=== PATIENT | female | born 1975 | race Caucasian/White ===

== ENCOUNTER 2019-08-15 14:42 | Emergency (ER) | payer MEDICAID ==
[2019-08-15] MEDS ORDERED: Ondansetron 4 MG/2 ML SDV IVPUSH ONE (15:21)
[2019-08-15] MEDS ORDERED: Sodium Chloride 0.9% 1,000 ML IV STA (15:21)
[2019-08-15] MEDS ORDERED: Sodium Chloride 0.9% 10 ML Syringe FLUSH PRN ×2 (15:21→15:47)
[2019-08-15] MEDS ORDERED: HYDROmorphone 1 MG/ML Syringe IVPUSH ONE (15:23)
[2019-08-15] MEDS ORDERED: Iopamidol 755 Mg/ML 100 ML Bottle IVPUSH ONE (15:47)
[2019-08-15] MEDS ORDERED: Diatrizoate Meglumine/Diatrizoate Sodium 37% 120 ML Bottle PO ONE (15:47)
[2019-08-15] MEDS ORDERED: Sodium Chloride 0.9% 100 ML IV SCH (16:00)
[2019-08-15] MEDS ORDERED: HYDROmorphone 0.5 MG/0.5 ML Syringe IVPUSH ONE (16:29)
--- NOTE | 2019-08-15 16:34 | CT ---
CT abdomen and pelvis Technique: Multiple axial sections were obtained from above the dome of the diaphragm inferiorly through the pubic symphysis. Intravenous and oral contrast was utilized. Delayed images were also obtained through the bladder. Comparison: Visualized lung bases show nothing acute. Findings: Liver shows minimal intrahepatic biliary duct dilatation. This is most likely residual from prior cholecystectomy. No additional abnormality is seen within the liver. Spleen shows no focal parenchymal abnormality. Previous stomach surgery is noted. Adrenal glands show no nodule. Kidneys show symmetric contrast enhancement. Several small low-density lesions are noted within the right kidney which are most likely due to cysts measuring approximately 1 cm or less in size. Pancreas appears within normal limits. Aorta shows no aneurysm. No retroperitoneal adenopathy or mesenteric abnormalities are seen. No pelvic mass or adenopathy is identified. Small amount of free fluid is seen within the cul-de-sac which is believed to be physiologic. Surgical material is seen off the tip of the cecum. Appendix is not visualized. Delayed images shows contrast within the distal ureters and bladder. Bone window settings were reviewed which appear within normal limits for the patient's age. No acute osseous finding is appreciated. Impression: 1. Findings believed to be incidental as noted above. 2. No acute abnormality is appreciated. Diagnostic code #2 Study was dictated in [place] Standard Time
--- NOTE | 2019-08-15 16:38 | EDM.PDOC ---
ED HPI GENERAL MEDICAL PROBLEM - General Chief Complaint: Abdominal Pain Stated Complaint: POSS INFECTION POST SURGERY Time Seen by Provider: 08/15/19 15:00 Source of Information: Reports: Patient History Limitations: Reports: No Limitations - History of Present Illness INITIAL COMMENTS - FREE TEXT/NARRATIVE: The patient presents with left upper abdominal pain. She had a hiatal hernia repair in [place] on the . She stayed there a few days and then came home. She did not tolerate her pain meds. She was seen here a few days ago. She had x-rays and labs done and that all looked good. The pain has been been getting better. She also has swelling in her legs and left shoulder and chest pain. She has one incision that is draining some yellow/green fluid. She has no fever but she has chills. She has no cough but she is short of breath at times. She has no history of DVT or PE. Onset: Gradual Duration: Week(s): Location: Reports: Abdomen Quality: Reports: Burning, Sharp Severity: Moderate Improves with: Reports: None Worsens with: Reports: None Associated Symptoms: Reports: Chest Pain, Shortness of Breath. Denies: Cough, Fever/Chills, Headaches, Nausea/Vomiting Abdomen Pain Score (Numeric/FACES): 8 - Related Data Allergies Allergy/AdvReac Type Severity Reaction Status Date / Time codeine Allergy Chest Pain Verified 08/15/19 14:58 oxycodone Allergy Chest Pain Verified 08/15/19 14:58 Home Meds: Home Meds Ondansetron [Zofran] 4 mg BUCCAL Q6H PRN #8 tab 08/07/19 [Rx] Apixaban [Eliquis] 10 mg PO BID #60 tablet 08/15/19 [Rx] Celecoxib [CeleBREX] 200 mg PO DAILY 08/15/19 [History] Famotidine 20 mg PO BEDTIME 08/15/19 [History] Hydrocodone/Acetaminophen [Hydrocodon-Acetaminophn 10-325] 1 each PO Q6H PRN # 20 tablet 08/15/19 [Rx] Multivitamin [Multivitamins] 1 each PO DAILY 08/15/19 [History] Pantoprazole Sodium [Protonix] 40 mg PO DAILY 08/15/19 [History] Pregabalin 150 mg PO BID 08/15/19 [History] clonazePAM [Clonazepam] 1 mg PO BEDTIME 08/15/19 [History] Past Medical History Gastrointestinal History: Reports: Bowel Obstruction CHEMIST ORGANIC History: Reports: Endometriosis Other CHEMIST ORGANIC History: hysterectomy Psychiatric History: Reports: Anxiety Endocrine/Metabolic History: Reports: Other (See Below) Other Endocrine/Metabolic History: osteomylitis, Multi-level degenerative disk disease - Past Surgical History GI Surgical History: Reports: Appendectomy, Bariatric Procedure, Cholecystectomy , Hernia, Abdominal, Hernia Repair/Other Female Surgical History: Reports: Hysterectomy Social & Family History - Tobacco Use Smoking Status *Q: Never Smoker - Caffeine Use Caffeine Use: Reports: None - Recreational Drug Use Recreational Drug Use: No ED ROS GENERAL - Review of Systems Review Of Systems: See Below Constitutional: Reports: No Symptoms HEENT: Reports: No Symptoms Respiratory: Reports: Shortness of Breath. Denies: Cough Cardiovascular: Reports: Chest Pain Endocrine: Reports: No Symptoms GI/Abdominal: Reports: Abdominal Pain : Reports: No Symptoms Musculoskeletal: Reports: Shoulder Pain (left) ED EXAM, GI/ABD - Physical Exam Exam: See Below Exam Limited By: No Limitations General Appearance: Alert, No Apparent Distress Ears: Normal External Exam Nose: Normal Inspection Head: Atraumatic, Normocephalic Neck: Normal Inspection Respiratory/Chest: No Respiratory Distress, Lungs Clear, Normal Breath Sounds Cardiovascular: Regular Rate, Rhythm, No Edema, No Murmur GI/Abdominal Exam: Soft, No Organomegaly, No Mass, Tender (Moderate left upper abdominal pain) Course - Vital Signs Last Recorded V/S: Last Vital Signs Temp 98.1 F 08/15/19 14:55 Pulse 61 08/15/19 14:55 Resp 16 08/15/19 14:55 BP 121/57 L 08/15/19 14:55 Pulse Ox 95 08/15/19 14:55 - Orders/Labs/Meds Orders: Active Orders 24 hr Category Date Time Status Peripheral IV Care [RC] . DIRECTED Care 08/15/19 15:22 Active Sodium Chloride 0.9% [Normal Saline] 100 ml Med 08/15/19 16:00 Active IV ASDIRECTED Sodium Chloride 0.9% [Saline Flush] Med 08/15/19 15:21 Active 10 ml FLUSH ASDIRECTED PRN Sodium Chloride 0.9% [Saline Flush] Med 08/15/19 15:47 Active 10 ml FLUSH ONETIME PRN ED Antiemetic Medication Reflex [OM.PC] Stat Oth 08/15/19 15:22 Ordered Peripheral IV Insertion Adult [OM.PC] Stat Oth 08/15/19 15:21 Ordered Medication Orders Sodium Chloride (Normal Saline) 100 mls @ 60 mls/hr IV ASDIRECTED EMELY Last Admin: 08/15/19 15:55 Dose: 60 mls/hr Sodium Chloride (Saline Flush) 10 ml FLUSH ASDIRECTED PRN PRN Reason: Keep Vein Open Last Admin: 08/15/19 15:35 Dose: 10 ml Sodium Chloride (Saline Flush) 10 ml FLUSH ONETIME PRN PRN Reason: Keep Vein Open Last Admin: 08/15/19 15:55 Dose: 10 ml Labs: Laboratory Tests 08/15/19 08/15/19 08/15/19 Range/Units 15:35 15:35 16:50 WBC 9.82 (3.98-10.04) K/mm3 RBC 4.43 (3.98-5.22) M/mm3 Hgb 14.4 (11.2-15.7) gm/dl Hct 44.4 (34.1-44.9) % MCV 100.2 H (79.4-94.8) fl MCH 32.5 H (25.6-32.2) pg MCHC 32.4 (32.2-35.5) g/dl RDW Std Deviation 47.7 H (36.4-46.3) fL Plt Count 350 (182-369) K/mm3 MPV 9.5 (9.4-12.3) fl Neut % (Auto) 77.0 H (34.0-71.1) % Lymph % (Auto) 14.6 L (19.3-51.7) % [place] % (Auto) 6.3 (4.7-12.5) % Eos % (Auto) 1.4 (0.7-5.8) Baso % (Auto) 0.5 (0.1-1.2) % Neut # (Auto) 7.56 H (1.56-6.13) K/mm3 Lymph # (Auto) 1.43 (1.18-3.74) K/mm3 [place] # (Auto) 0.62 H (0.24-0.36) K/mm3 Eos # (Auto) 0.14 (0.04-0.36) K/mm3 Baso # (Auto) 0.05 (0.01-0.08) K/mm3 Sodium 143 (136-145) mEq/L Potassium 4.9 (3.5-5.1) mEq/L Chloride 109 H (98-107) mEq/L Carbon Dioxide 27 (21-32) mEq/L Anion Gap 11.9 (5-15) BUN 8 (7-18) mg/dL Creatinine 0.7 (0.55-1.02) mg/dL Est Cr Clr Drug Dosing 97.01 mL/min Estimated GFR (MDRD) > 60 (>60) mL/min BUN/Creatinine Ratio 11.4 L (14-18) Glucose 107 H (74-106) mg/dL Calcium 8.7 (8.5-10.1) mg/dL Total Bilirubin 0.3 (0.2-1.0) mg/dL AST 19 (15-37) U/L ALT 30 (14-59) U/L Alkaline Phosphatase 135 H (46-116) U/L Total Protein 7.4 (6.4-8.2) g/dl Albumin 3.3 L (3.4-5.0) g/dl Globulin 4.1 gm/dL Albumin/Globulin Ratio 0.8 L (1-2) Lipase 119 (73-393) U/L Urine Color Yellow (Yellow) Urine Appearance Clear (Clear) Urine pH 6.5 (5.0-8.0) Ur Specific [place] 1.020 (1.005-1.030) Urine Protein Negative (Negative) Urine Glucose (UA) Negative (Negative) Urine Ketones Negative (Negative) Urine Occult Blood 1+ H (Negative) Urine Nitrite Negative (Negative) Urine Bilirubin Negative (Negative) Urine Urobilinogen 0.2 (0.2-1.0) Ur Leukocyte Esterase Negative (Negative) Urine RBC 0-5 (0-5) /hpf Urine WBC 0-5 (0-5) /hpf Ur Squamous Epith Cells 0-5 (0-5) /hpf Urine Bacteria Rare (FEW) /hpf Urine Mucus Not seen (FEW) /hpf Meds: Medications Generic Name Dose Route Start Last Admin Trade Name Freq PRN Reason Stop Dose Admin Sodium Chloride 100 mls @ 60 mls/hr 08/15/19 16:00 08/15/19 15:55 Normal Saline IV 60 mls/hr ASDIRECTED EMELY Administration Sodium Chloride 10 ml 08/15/19 15:21 08/15/19 15:35 Saline Flush FLUSH 10 ml ASDIRECTED PRN Administration Keep Vein Open Sodium Chloride 10 ml 08/15/19 15:47 08/15/19 15:55 Saline Flush FLUSH 10 ml ONETIME PRN Administration Keep Vein Open Discontinued Medications Generic Name Dose Route Start Last Admin Trade Name Freq PRN Reason Stop Dose Admin Diatrizoate Meglum/Diatrizoate Sod 30 ml 08/15/19 15:47 08/15/19 15:55 Gastrografin 37% PO 08/15/19 15:48 30 ml ONETIME ONE Administration Hydromorphone HCl 1 mg 08/15/19 15:23 08/15/19 15:40 Dilaudid IVPUSH 08/15/19 15:24 1 mg ONETIME ONE Administration Hydromorphone HCl 0.5 mg 08/15/19 16:29 08/15/19 16:55 Dilaudid IVPUSH 08/15/19 16:30 0.5 mg ONETIME ONE Administration Sodium Chloride 1,000 mls @ 1,000 mls/hr 08/15/19 15:21 08/15/19 15:44 Normal Saline IV 08/15/19 16:20 1,000 mls/hr .BOLUS STA Administration Iopamidol 100 ml 08/15/19 15:47 08/15/19 15:55 Isovue-370 (76%) IVPUSH 08/15/19 15:48 100 ml ONETIME ONE Administration Ondansetron HCl 4 mg 08/15/19 15:21 08/15/19 15:37 Zofran IVPUSH 08/15/19 15:22 4 mg ONETIME ONE Administration - Re-Assessments/Exams Free Text/Narrative Re-Assessment/Exam: 08/15/19 17:25 I ordered an IV NS 1L bolus, dilaudid 1mg IV, zofran 4mg IV, labs, UA, CT angio of the chest and CT of her abdomen and pelvis. Her CBC and CMP look good. Her lipase is normal. Her UA shows no UTI. Her abdominal CT shows findings believed to be incidental as noted above and no acute abnormality is appreciated. The CT angio of her chest shows several small subsegmental pulmonary emboli within the right lower lung. No acute finding is seen. No right heart strain is seen. I will get her on some eliquis and some hydrocodone for pain. Departure - Departure Time of Disposition: 17:30 Disposition: Home, Self-Care 01 Condition: Good Clinical Impression: Abdominal pain Qualifiers: Abdominal location: left upper quadrant Qualified Code(s): R10.12 - Left upper quadrant pain Pulmonary embolism Qualifiers: Pulmonary embolism type: other Chronicity: acute Acute cor pulmonale presence: unspecified Qualified Code(s): I26.99 - Other pulmonary embolism without acute cor pulmonale - Discharge Information *PRESCRIPTION DRUG MONITORING PROGRAM REVIEWED*: Not Applicable *COPY OF PRESCRIPTION DRUG MONITORING REPORT IN PATIENT SELMA: Not Applicable Prescriptions: Apixaban [Eliquis] 10 mg PO BID #60 tablet Hydrocodone/Acetaminophen [Hydrocodon-Acetaminophn 10-325] 1 each PO Q6H PRN # 20 tablet PRN Reason: Pain Referrals: Kathleen Harris, [employer] [Primary Care Provider] - 3 Days Forms: ED Department Discharge Additional Instructions: Take the eliquis 2 pills by mouth 2 times per day for 7 days and then 1 pill by mouth 2 times per day. Drink plenty of fluids. Take they hydrocodone 1 pill every 6 hours as needed for pain. Clean the wound on your right flank 2 times per day with warm soapy water and put some antibiotic ointment after. Follow up with Kathleen Harris within 3 days. Please return if you are worse. Sepsis Event Note - Evaluation Sepsis Screening Result: No Definite Risk - Focused Exam Vital Signs: Vital Signs Temp Pulse Resp BP Pulse Ox 08/15/19 14:55 98.1 F 61 16 121/57 L 95 Date Exam was Performed: 08/15/19 Time Exam was Performed: 17:23 - My Orders Last 24 Hours: My Active Orders 08/15/19 15:21 Sodium Chloride 0.9% [Saline Flush] 10 ml FLUSH ASDIRECTED PRN Peripheral IV Insertion Adult [OM.PC] Stat 08/15/19 15:22 Peripheral IV Care [RC] . DIRECTED ED Antiemetic Medication Reflex [OM.PC] Stat 08/15/19 15:47 Sodium Chloride 0.9% [Saline Flush] 10 ml FLUSH ONETIME PRN 08/15/19 16:00 Sodium Chloride 0.9% [Normal Saline] 100 ml IV ASDIRECTED - Assessment/Plan Last 24 Hours: My Active Orders 08/15/19 15:21 Sodium Chloride 0.9% [Saline Flush] 10 ml FLUSH ASDIRECTED PRN Peripheral IV Insertion Adult [OM.PC] Stat 08/15/19 15:22 Peripheral IV Care [RC] . DIRECTED ED Antiemetic Medication Reflex [OM.PC] Stat 08/15/19 15:47 Sodium Chloride 0.9% [Saline Flush] 10 ml FLUSH ONETIME PRN 08/15/19 16:00 Sodium Chloride 0.9% [Normal Saline] 100 ml IV ASDIRECTED
--- NOTE | 2019-08-15 16:42 | CT ---
CT chest Technique: Multiple axial sections through the chest were obtained. Intravenous contrast was utilized. Study has been performed as a pulmonary angiogram protocol. Findings: Small filling defects are seen within several subsegmental branches within the right lower lung compatible with pulmonary emboli. No pulmonary emboli seen within the main or within the segmental branches. No evidence of right ventricular strain is seen. No pericardial effusion is seen. Mediastinum shows small lymph nodes which are felt to be within normal limits. No axillary adenopathy is seen. Small portion of the visualized upper abdominal structures appear unremarkable. Lung window settings were reviewed. No acute parenchymal process is seen. Bone window settings were reviewed which shows mild degenerative change within the spine without acute osseous finding. Impression: 1. Several small subsegmental pulmonary emboli within the right lower lung. 2. No other acute finding is seen. No right heart strain is seen. Diagnostic code #5 Study was dictated in [place] Standard Time
[2019-08-15 18:26] VITALS: BP 118/73; PULSE 79
== END 2019-08-15 18:00 | disposition home or self-care (01) ==
LOC: JD.ED 14:42 → MERGE 14:42 → JD.ED 18:00
DX: I26.99 Other pulmonary embolism without acute cor pulmonale (principal); R10.12 Left upper quadrant pain; Z88.5 Allergy status to narcotic agent; Z79.899 Other long term (current) drug therapy; Z90.49 Acquired absence of other specified parts of digestive tract; Z90.710 Acquired absence of both cervix and uterus
CPT/HCPCS: 36415; 71275; 74177; 80053; 81001; 83690; 85025; 96361; 96374; 96375; 96376; 99284; J1170; J2405; J7030; J7050; Q9963; Q9967

== ENCOUNTER 2019-09-15 22:37 | Emergency (ER) | payer MEDICAID, OTHER ==
[2019-09-15 23:00] VITALS: BP 122/76; PULSE 74
--- NOTE | 2019-09-15 23:43 | EDM.PDOC ---
ED HPI GENERAL MEDICAL PROBLEM - General Chief Complaint: Respiratory Problem Stated Complaint: ON A BLOOD THINNER SOB Time Seen by Provider: 09/15/19 23:05 Source of Information: Reports: Patient History Limitations: Reports: No Limitations - History of Present Illness INITIAL COMMENTS - FREE TEXT/NARRATIVE: Ms. Tiwari is a 44-year-old woman with a past medical history significant for a hiatal hernia and GERD, status post a gastric bypass in 2000, followed by a hiatal hernia repair surgery in July of this year, untreated Crohn disease, a pulmonary embolus diagnosed on 08/15/2019, on Xarelto, and anxiety treated with clonazepam at bedtime, who now presents to the ED stating that she has had 4 days of dyspnea at rest and with exertion, with pain when she inhales. She has also felt lightheaded and disoriented. Her symptoms have not affected her sleep. No associated fever, cough, nasal or sinus congestion, or sore throat. The patient states that she has been taking previously prescribed [place] to help with the pain. The patient states that her sister is an EMT, and encouraged the patient to come to the ED to have us check to see if the PE has moved. The patient states that she is compliant with her Xarelto, and for clarification, she states that she was initially going to be started on Eliquis, but was switched to Xarelto due to insurance reasons before she was discharged from the hospital, and she has remained on Xarelto since. Here in the ED, the patient is found to be hemodynamically stable, afebrile, saturating 99 to 100% on room air. Given the patient's history of anxiety, with the above oxygen saturation suggesting hyperventilation, I asked her whether it might be possible that anxiety could be responsible for her symptoms. She reported that she has been told by other emergency physicians, on numerous occasions, that she was having a panic attack, but then she was diagnosed with a hiatal hernia, and that explained her symptoms, because, she believes, the hiatal hernia was pushing on her heart, causing her heart to hurt. She feels, therefore, that her current symptoms cannot be caused by anxiety even though she underwent hiatal hernia surgery on 08/03/2019. The patient denies recent chills, ear pain, palpitations, nausea, vomiting, constipation, diarrhea, abdominal pain, urinary symptoms, recent weight gain or weight loss, recent bloody bowel movements or black bowel movements, recent joint aches, headaches, or rashes. The patient's PCP is Kathleen Harris NP. Her Bariatric Surgeon was Dr. Arnold Fan. Her Type Casting Machine Operator was Dr. Pete Grant. - Related Data Allergies Allergy/AdvReac Type Severity Reaction Status Date / Time codeine Allergy Chest Pain Verified 08/15/19 14:58 oxycodone Allergy Chest Pain Verified 08/15/19 14:58 Home Meds: Home Meds Ondansetron [Zofran] 4 mg BUCCAL Q6H PRN #8 tab 08/07/19 [Rx] Apixaban [Eliquis] 10 mg PO BID #60 tablet 08/15/19 [Rx] Celecoxib [CeleBREX] 200 mg PO DAILY 08/15/19 [History] Famotidine 20 mg PO BEDTIME 08/15/19 [History] Hydrocodone/Acetaminophen [Hydrocodon-Acetaminophn 10-325] 1 each PO Q6H PRN # 20 tablet 08/15/19 [Rx] Multivitamin [Multivitamins] 1 each PO DAILY 08/15/19 [History] Pantoprazole Sodium [Protonix] 40 mg PO DAILY 08/15/19 [History] Pregabalin 150 mg PO BID 08/15/19 [History] clonazePAM [Clonazepam] 1 mg PO BEDTIME 08/15/19 [History] Past Medical History Respiratory History: Reports: PE Gastrointestinal History: Reports: Bowel Obstruction, Colon Polyp, GERD, Hiatal Hernia (s/p surgical repair), Inflammatory Bowel Disease (Crohn disease, untreated) Genitourinary History: Reports: Renal Calculus [employer]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: Endometriosis Musculoskeletal History: Reports: Back Pain, Chronic (DDD), Osteoarthritis Psychiatric History: Reports: Anxiety Endocrine/Metabolic History: Reports: Other (See Below) (Hypoglycemia following bariatric surgery) - Past Surgical History HEENT Surgical History: Reports: Adenoidectomy, Oral Surgery (wisdom teeth extraction), Tonsillectomy GI Surgical History: Reports: Appendectomy, Bariatric Procedure (gastric bypass Jun 2000), Cholecystectomy (around 1991), Colonoscopy (x 2 or 3, with polypectomy), EGD (x 3), Lysis of Adhesions (x 2), Other (See Below) (Hiatal hernia repair 08/03/2019) Female Surgical History: Reports: Hysterectomy (partial), Ureteral Stent, Other (See Below) (Renal calculus retrieval. Fallopian tube surgery + 2 fertility surgeries.) Musculoskeletal Surgical History: Reports: Arthroscopic Knee (left) Social & Family History - Tobacco Use Smoking Status *Q: Never Smoker Second Hand Smoke Exposure: No - Caffeine Use Caffeine Use: Reports: None - Alcohol Use Alcohol Use History: Yes Alcohol Use Frequency: Socially - Recreational Drug Use Recreational Drug Use: No - Living Situation & Occupation Living situation: Reports: , with Significant Other (Fianc), with Family (5 kids) Occupation: Unemployed ED ROS GENERAL - Review of Systems Review Of Systems: Comprehensive ROS is negative, except as noted in HPI. ED EXAM, GENERAL - Physical Exam Exam: See Below Exam Limited By: No Limitations General Appearance: Alert, WD/WN, No Apparent Distress Eye Exam: Bilateral Eye: EOMI, Normal Inspection Ears: Normal External Exam, Hearing Grossly Normal Nose: Normal Inspection Throat/Mouth: Normal Inspection, Normal Lips, Normal Voice, No Airway Compromise Head: Atraumatic, Normocephalic Neck: Normal Inspection, Full Range of Motion Respiratory/Chest: No Respiratory Distress, Lungs Clear, Normal Breath Sounds, No Accessory Muscle Use Cardiovascular: Normal Peripheral Pulses, Regular Rate, Rhythm, No Edema, No Gallop, No JVD, No Murmur, No Rub Peripheral Pulses: 4+: Radial (L), Radial (R) GI/Abdominal: Normal Bowel Sounds, Soft, Non-Tender, No Organomegaly, No Distention, No Abnormal Bruit, No Mass (Female) Exam: Deferred Rectal (Female) Exam: Deferred Back Exam: Normal Inspection, Full Range of Motion, NT Extremities: Normal Inspection, Normal Range of Motion, No Pedal Edema, Normal Capillary Refill Neurological: Alert, Oriented, Normal Cognition, No Motor/Sensory Deficits Psychiatric: Normal Affect Skin Exam: Warm, Dry, Intact, Normal Color, No Rash EKG INTERPRETATION EKG Date: 09/15/19 Time: 23:38 Rhythm: NSR Rate (Beats/Min): 65 [place]: Normal P-Wave: Enlarged (LAE) QRS: Normal ST-T: Normal QT: Normal Comparison: NA - No Prior EKG Course - Vital Signs Last Recorded V/S: Last Vital Signs Temp 36.9 C 09/15/19 22:56 Pulse 74 09/15/19 22:56 Resp 18 09/15/19 22:56 BP 122/76 09/15/19 22:56 Pulse Ox 99 09/15/19 22:56 Orthostatic Blood Pressure [ 107/76 Standing] Orthostatic Blood Pressure [ 110/84 Sitting] Orthostatic Blood Pressure [ 107/73 Supine] - Orders/Labs/Meds Orders: Active Orders 24 hr Category Date Time Status EKG Documentation Completion [RC] STAT Care 09/15/19 23:33 Active Orthostatic Vital Signs [RC] STAT Care 09/15/19 23:33 Active Chest 2V [CR] Stat Exams 09/15/19 23:33 Taken CORONAVIRUS COVID-19 PCR PHL [MREF] Stat Lab 09/16/19 00:20 Received Labs: Laboratory Tests 09/15/19 09/15/19 09/15/19 Range/Units 23:40 23:50 23:50 WBC 7.34 (3.98-10.04) K/mm3 RBC 4.02 (3.98-5.22) M/mm3 Hgb 13.1 (11.2-15.7) gm/dl Hct 39.9 (34.1-44.9) % MCV 99.3 H (79.4-94.8) fl MCH 32.6 H (25.6-32.2) pg MCHC 32.8 (32.2-35.5) g/dl RDW Std Deviation 47.8 H (36.4-46.3) fL Plt Count 222 D (182-369) K/mm3 MPV 9.2 L (9.4-12.3) fl Neutrophils % (Manual) 72 H (40-60) % Band Neutrophils % 0 (0-10) % Lymphocytes % (Manual) 23 (20-40) % Atypical Lymphs % 0 % Monocytes % (Manual) 3 (2-10) % Eosinophils % (Manual) 2 (0.7-5.8) % Basophils % (Manual) 0 L (0.1-1.2) Platelet Estimate Adequate Anisocytosis 1+ slight RBC Morph Comment Not Reportable Puncture Site Rt brachial ABG pH 7.41 (7.35-7.45) ABG pCO2 34.0 L (35.0-45.0) mmHg ABG pO2 85.0 (80.0-100.0) mmHg ABG HCO3 21.2 L (22.0-26.0) meq/L ABG O2 Saturation 96.5 (96.0-97.0) % ABG Base Excess -2.2 L (-2-2.0) A-a Gradient 22 mmHg O2 Delivery Device Room air FiO2 21.00 (21.00-100.00) % Sodium 141 (136-145) mEq/L Potassium 3.9 (3.5-5.1) mEq/L Chloride 107 (98-107) mEq/L Carbon Dioxide 24 (21-32) mEq/L Anion Gap 13.9 (5-15) BUN 7 (7-18) mg/dL Creatinine 0.9 (0.55-1.02) mg/dL Est Cr Clr Drug Dosing TNP Estimated GFR (MDRD) > 60 (>60) mL/min BUN/Creatinine Ratio 7.8 L (14-18) Glucose 99 (74-106) mg/dL Calcium 7.9 L (8.5-10.1) mg/dL Magnesium 1.7 L (1.8-2.4) mg/dl Total Bilirubin 0.3 (0.2-1.0) mg/dL AST 35 (15-37) U/L ALT 21 (14-59) U/L Alkaline Phosphatase 101 (46-116) U/L Troponin I < 0.017 (0.00-0.056) ng/mL NT-Pro-B Natriuret Pep (0-125) pg/mL Total Protein 6.6 (6.4-8.2) g/dl Albumin 2.9 L (3.4-5.0) g/dl Globulin 3.7 gm/dL Albumin/Globulin Ratio 0.8 L (1-2) TSH 3rd Generation 6.137 H (0.358-3.74) uIU/mL 09/15/19 Range/Units 23:50 WBC (3.98-10.04) K/mm3 RBC (3.98-5.22) M/mm3 Hgb (11.2-15.7) gm/dl Hct (34.1-44.9) % MCV (79.4-94.8) fl MCH (25.6-32.2) pg MCHC (32.2-35.5) g/dl RDW Std Deviation (36.4-46.3) fL Plt Count (182-369) K/mm3 MPV (9.4-12.3) fl Neutrophils % (Manual) (40-60) % Band Neutrophils % (0-10) % Lymphocytes % (Manual) (20-40) % Atypical Lymphs % % Monocytes % (Manual) (2-10) % Eosinophils % (Manual) (0.7-5.8) % Basophils % (Manual) (0.1-1.2) Platelet Estimate Anisocytosis RBC Morph Comment Puncture Site ABG pH (7.35-7.45) ABG pCO2 (35.0-45.0) mmHg ABG pO2 (80.0-100.0) mmHg ABG HCO3 (22.0-26.0) meq/L ABG O2 Saturation (96.0-97.0) % ABG Base Excess (-2-2.0) A-a Gradient mmHg O2 Delivery Device FiO2 (21.00-100.00) % Sodium (136-145) mEq/L Potassium (3.5-5.1) mEq/L Chloride (98-107) mEq/L Carbon Dioxide (21-32) mEq/L Anion Gap (5-15) BUN (7-18) mg/dL Creatinine (0.55-1.02) mg/dL Est Cr Clr Drug Dosing Estimated GFR (MDRD) (>60) mL/min BUN/Creatinine Ratio (14-18) Glucose (74-106) mg/dL Calcium (8.5-10.1) mg/dL Magnesium (1.8-2.4) mg/dl Total Bilirubin (0.2-1.0) mg/dL AST (15-37) U/L ALT (14-59) U/L Alkaline Phosphatase (46-116) U/L Troponin I (0.00-0.056) ng/mL NT-Pro-B Natriuret Pep 129 H (0-125) pg/mL Total Protein (6.4-8.2) g/dl Albumin (3.4-5.0) g/dl Globulin gm/dL Albumin/Globulin Ratio (1-2) TSH 3rd Generation (0.358-3.74) uIU/mL - Re-Assessments/Exams Free Text/Narrative Re-Assessment/Exam: 09/15/19 23:34 As above, the patient has been experiencing 4 days of daytime dyspnea at rest and exertion, with painful inspiration, lightheadedness, and disorientation. She has not had a cough or fever. Her oxygen saturation is 99 to 100% here in the ED, and her lungs are entirely clear to auscultation bilaterally. I explained to the patient that we cannot check the status of her pulmonary embolus. I explained that the Xarelto that she is on prevents her body from developing new blood clot, but does not dissolve existing blood clot. Her body may or may not dissolve the blood clot in her lungs, over time. If we were to check a CT angiogram of her chest today and found blood clot, we would have no choice but to conclude that it is the pre-existing PE, and if no blood clot were found, then that would not explain the patient's symptoms. We can, however , check a chest x-ray to see if there is any evidence of a pulmonary infarct, which was not present on her prior CT scan, along with other tests to evaluate her dyspnea. 09/16/19 00:04 Two-view chest radiograph appears to be grossly normal. The cardiac silhouette is within normal limits. No pulmonary vascular congestion. No pleural effusions. No focal infiltrate. No pneumothorax. No evidence of a hiatal hernia. Formal read per the Radiologist pending. 09/16/19 00:57 The patient's CBC is unremarkable. Her CMP is unremarkable. Her magnesium level is slightly depressed at 1.7. Her troponin is undetectably low. Her BNP is slightly elevated at 129. Her TSH is elevated at 6.137. Her ABG represents a chronic/fully compensated respiratory alkalosis. 09/16/19 01:02 The patient is not orthostatic. 09/16/19 01:14 Test results discussed with the patient. The ABG confirms that the patient is hyperventilating, which is usually caused by anxiety, although can be caused by a variety of medical conditions including pain, a head injury with increased intracranial pressure, metabolic acidosis, DKA, uremia, salicylate toxicity, hypocalcemia, hypoglycemia, hyperthyroidism, liver failure, , severe anemia, sepsis, acute coronary event, sympathomimetic toxidrome, organic central nervous system disorders, pneumothorax, pneumonia, dysrhythmia, and CHF. These have been ruled out. A pulmonary embolus can cause hyperventilation , however, the CT report from 08/15/2019 indicates only a few small subsegmental emboli, and the body of the report specifically points out that there is no right ventricular strain seen, therefore the hemodynamic impact appears to be quite small. Going forward, I am recommending that the patient follow-up with her PCP to discuss treatment options for anxiety, as well as to have her TSH rechecked. Departure - Departure Time of Disposition: 01:20 Disposition: Home, Self-Care 01 Condition: Good Clinical Impression: Hyperventilation syndrome - Discharge Information *PRESCRIPTION DRUG MONITORING PROGRAM REVIEWED*: Not Applicable *COPY OF PRESCRIPTION DRUG MONITORING REPORT IN PATIENT SELMA: Not Applicable Referrals: Kathleen Harris NP [Primary Care Provider] - Arnold Fan MD [Physician] - Pete Grant MD [Consulting Physician] - Forms: ED Department Discharge Additional Instructions: You were seen in the emergency room for shortness of breath, both at rest and with exertion, with pain with inspiration, dizziness, and disorientation. Work-up in the ER included blood work, an arterial blood gas, positional blood pressure checks, a chest x-ray, and an ECG. Your ABG confirmed that you were hyperventilating. Hyperventilation is usually caused by anxiety, although can be caused by a variety of medical conditions including pain, a head injury with increased intracranial pressure, metabolic acidosis, DKA, uremia, salicylate toxicity, hypocalcemia, hypoglycemia, hyperthyroidism, liver failure, , severe anemia, sepsis, acute coronary event, sympathomimetic toxidrome, organic central nervous system disorders, pneumothorax, pneumonia, dysrhythmia, and CHF. These have been ruled out. You do not have pneumonia or a pulmonary infarct. You are not dehydrated or intravascularly depleted. No abnormal rhythms were found on your ECG, and you have not suffered any heart damage. You are not anemic, and there is no sign of an infection. Your electrolytes were unremarkable. You not have congestive heart failure. A pulmonary embolus can also cause hyperventilation, however, the CT report from 08/15/2019 indicates only a few small subsegmental emboli, and the body of the report specifically points out that there is no right ventricular strain seen, therefore the hemodynamic impact appears to be quite small. Your TSH (thyroid-stimulating hormone) was found to be elevated, indicating that you may be hypothyroid. We recommend that you follow-up with your PCP, Rosemary Harris NP, to discuss treatment options for anxiety, as well as to have your TSH rechecked. If any other problems, please do not hesitate to return to the ER. Sepsis Event Note - Evaluation Sepsis Screening Result: No Definite Risk - Focused Exam Vital Signs: Vital Signs Temp Pulse Resp BP Pulse Ox 09/15/19 22:56 36.9 C 74 18 122/76 99 Date Exam was Performed: 09/16/19 Time Exam was Performed: 01:14 - My Orders Last 24 Hours: My Active Orders 09/15/19 23:33 EKG Documentation Completion [RC] STAT Orthostatic Vital Signs [RC] STAT Chest 2V [CR] Stat 09/16/19 00:20 CORONAVIRUS COVID-19 PCR PHL [MREF] Stat - Assessment/Plan Last 24 Hours: My Active Orders 09/15/19 23:33 EKG Documentation Completion [RC] STAT Orthostatic Vital Signs [RC] STAT Chest 2V [CR] Stat 09/16/19 00:20 CORONAVIRUS COVID-19 PCR PHL [MREF] Stat
--- NOTE | 2019-09-16 09:40 | CR ---
Chest: 2 views of the chest were obtained. Comparison: Prior chest x-ray of 08/07/[address] of 08/15/19. Heart size and mediastinum are within normal limits. Lungs are clear with no acute parenchymal change. Bony structures shows nothing acute. Surgical clips are noted within the upper abdomen. Impression: 1. Nothing acute is appreciated on 2 view chest x-ray. Diagnostic code #2 This report was dictated in MDT
== END 2019-09-16 01:42 | disposition home or self-care (01) ==
LOC: MERGE 22:37 → JD.ED 22:37
DX: F45.8 Other somatoform disorders (principal); Z88.5 Allergy status to narcotic agent; Z79.01 Long term (current) use of anticoagulants; Z79.899 Other long term (current) drug therapy; Z20.828 Contact with and (suspected) exposure to other viral communicable diseases
CPT/HCPCS: 36415; 36600; 71046; 71046-26; 80053; 82803; 83735; 83880; 84443; 84484; 85007; 85027; 93005; 93010; 99283; 99285-25; U0002

== ENCOUNTER 2021-07-13 07:15 | Emergency (ER) | payer MEDICAID, BC ==
[2021-07-13] MEDS ORDERED: Sodium Chloride 0.9% 10 ML Syringe FLUSH PRN (08:08)
[2021-07-13] MEDS ORDERED: Acetaminophen 325 MG Tab PO ONE (08:09)
[2021-07-13] MEDS ORDERED: Sodium Chloride 0.9% 1,000 ML IV SCH (08:15)
[2021-07-13] MEDS ORDERED: Ketorolac 30 MG/ML SDV IVPUSH SCH (10:45)
[2021-07-13 11:36] VITALS: BP 125/75; PULSE 76
== END 2021-07-13 11:35 | disposition home or self-care (01) ==
LOC: JD.ED 07:15
DX: B34.9 Viral infection, unspecified (principal); Z88.5 Allergy status to narcotic agent; Z88.8 Allergy status to other drugs, medicaments and biological substances; Z79.899 Other long term (current) drug therapy; Z90.710 Acquired absence of both cervix and uterus; Z90.49 Acquired absence of other specified parts of digestive tract
CPT/HCPCS: 36415; 70450; 80053; 81001; 85025; 87635; 99284; A9270; J7030; U0002

== ENCOUNTER 2021-10-08 14:03 | Emergency (ER) | payer BC, MEDICAID ==
[2021-10-08] MEDS ORDERED: Ondansetron 4 MG/2 ML SDV IVPUSH ONE (16:03)
[2021-10-08] MEDS ORDERED: Lactated Ringers 1,000 ML IV ONE (16:03)
[2021-10-08] MEDS ORDERED: diphenhydrAMINE 50 MG/ML SDV IVPUSH ONE (16:03)
[2021-10-08 18:36] VITALS: BP 116/49; PULSE 88
== END 2021-10-08 18:35 ==
LOC: JD.ED 14:03
DX: G98.8 Other disorders of nervous system (principal); K21.9 Gastro-esophageal reflux disease without esophagitis; M19.90 Unspecified osteoarthritis, unspecified site; Z86.16 Personal history of COVID-19; Z88.5 Allergy status to narcotic agent; Z79.899 Other long term (current) drug therapy
CPT/HCPCS: 80053; 83735; 84443; 85025; 85652; 86140; 87449; 87476; 93005; 96374; 96375; 99284; J1200; J2405; J7120; G0433

== ENCOUNTER 2022-02-03 19:16 | Emergency (ER) | payer BC, MEDICAID ==
[2022-02-03] MEDS ORDERED: Sodium Chloride 0.9% 10 ML Syringe FLUSH PRN (19:37)
[2022-02-03 22:18] VITALS: BP 127/88; PULSE 72
== END 2022-02-03 22:18 | disposition home or self-care (01) ==
LOC: JD.ED 19:16
DX: R07.89 Other chest pain (principal); R25.1 Tremor, unspecified; K21.9 Gastro-esophageal reflux disease without esophagitis; I10 Essential (primary) hypertension; E66.9 Obesity, unspecified; Z68.34 Body mass index [BMI] 34.0-34.9, adult; Z88.5 Allergy status to narcotic agent; Z79.899 Other long term (current) drug therapy; Z86.16 Personal history of COVID-19; Z90.49 Acquired absence of other specified parts of digestive tract; Z90.710 Acquired absence of both cervix and uterus
CPT/HCPCS: 36415; 71045; 80053; 83735; 83880; 84484; 85025; 85379; 85610; 93005; 99285; J3490